=== PATIENT | female | born 1985 | race Caucasian/White ===

== ENCOUNTER → 2021-01-13 09:12 | Outpatient (CLI) | payer OTHER, SELFPAY ==
[2021-01-14 02:02] LABS: SARS-CoV-2 RNA PCR Negative
== END ==
PROVIDERS: Visit Provider Physician Assistant
DX: Z20.822 Contact with and (suspected) exposure to COVID-19 (principal); B34.9 Viral infection, unspecified
CPT/HCPCS: C9803; U0003; U0005

== ENCOUNTER 2021-07-03 14:30 | Emergency (ER) | payer OTHER, SELFPAY ==
[2021-07-03 14:41] VITALS: BP 119/69; PULSE 84; RESP 18; TEMP 37; O2SAT 100
--- NOTE | 2021-07-03 15:13 | ED.FEMALEGU ---
HPI - Female Genitourinary General Chief complaint: Urogenital-Female Stated complaint: Lower back Pain,UTI Time Seen by Provider: 07/03/21 15:15 Source: patient and RN notes reviewed Mode of arrival: ambulatory Limitations: no limitations History of Present Illness HPI Narrative: 35-year-old female presents to the [facility] with lower back pain bilaterally. States that she lost partial control of her urine while standing pain for her groceries this morning. Has had control of her urine since. Related Data Home Medications Medication Instructions Recorded Confirmed aripiprazole mg 07/03/21 sertraline mg 07/03/21 07/03/21 Allergies Allergy/AdvReac Type Severity Reaction Status Date / Time No Known Allergies Allergy Verified 07/03/21 15:05 Review of Systems Review of Systems: All systems reviewed & are unremarkable except as noted in HPI and below Constitutional: Constitutional: Reports no additional constitutional complaints, Denies chills and Denies fatigue Eyes: Eyes: Reports no additional eye complaints ENT: Reports system reviewed and no additional complaints, except as documented Cardiovascular: Cardiovascular: Reports no additional cardiovascular complaints Respiratory: Respiratory: Reports no additional respiratory complaints Gastrointestinal: Gastrointestinal: Reports no additional gastrointestinal complaints, Denies abdominal pain, Denies nausea and Denies vomiting Genitourinary: Genitourinary: Reports as per HPI and Reports nocturia Musculoskeletal: Musculoskeletal: Reports as per HPI and Reports back pain (lower) Integumentary/Breasts: Skin/Breast: Reports system reviewed and no additional complaints, except as docu Neurologic: Reports system reviewed and no additional complaints, except as documented Psychiatric: Psychiatric: Reports no additional psychiatric complaints Allergic/Immunologic: Allergic/Immunologic: Reports no additional allergic/immunologic complaints [facility] Past Medical History Medical History (Updated 07/05/21 @ 10:41 by Bev No) Depression with anxiety Surgical History Surgical History (Updated 07/05/21 @ 10:37 by Bev No) No significant past surgical history Social History Social History (Updated 07/05/21 @ 10:38 by Bev No) Living arrangements: with family Gender identity (if verbalized by the patient): Female Comments At the time of my signature, I reviewed and agree with the nursing past medical, surgical, social, and family history. There is no relevant family history pertinent to the patient complaint. Exam Const: General: no acute distress and alert Nutritional Appearance: well nourished Orientation/consciousness: patient oriented x3 Limitations: no limitations HENMT: Head: normal to inspection Ears: external ears normal Eyes: Pupils: Equal, round and reactive pupils present Neck: Neck: normal visual inspection, no lymphadenopathy and no meningeal signs Chest: Chest palpation & inspection: normal inspection of the chest Resp: Effort & Inspection: normal respiratory effort and no use of accessory muscles Auscultation: clear to auscultation bilaterally, no crackles, no rales, no rhonchi and no wheezes Cardio: Rate: regular rate Rhythm: regular rhythm GI: GI Palp: Yes Soft to palpation, No Tenderness to palpation present (GI), No Guarding due to palpation present (GI) and No Rebound tenderness present Auscultation: normal bowel sounds : General: Yes no CVA tenderness Back/Spine/Pelvis: Back: no CVA tenderness Cervical Spine: normal cervical lordosis, cervical ROM normal and No cervical muscular tenderness Pelvis: no pain with anterior-posterior compression and no pain with lateral compression Sacrum: no ecchymosis Coccyx: no swelling and no tenderness Back/spine/pelvis image: 1. Reports pain to the lower lumbar area. No midline tenderness. No loss of bowel. Patient states that she had a small loss of
== END 2021-07-03 15:40 | disposition home or self-care (01) ==
PROVIDERS: Emergency Provider Nurse Practitioner; PCP Family Medicine
DX: M54.5 Low back pain (principal); F41.9 Anxiety disorder, unspecified; F32.9 Major depressive disorder, single episode, unspecified
CPT/HCPCS: 81003; 87086; 99213; G0463

== ENCOUNTER 2024-06-05 08:25 | Day surgery (SDC) | payer OTHER, SELFPAY ==
[2024-05-28 10:34] VITALS: BMI 32.2
--- NOTE | ~2024-06-05 | XR_ITS ---
EXAMINATION: XR fluoroscopy no charge DATE: 06/05/2024 10:35 CDT INDICATION: PRISCILLA L4-5,L5-S1 TRANSFORAMINAL INJ . TECHNIQUE: 7 fluoroscopic images and multiple cine clips of the lumbar spine were obtained during priscilla ateral L4-5 and L5-S1 transforaminal injection, performed by Vincent Barragan MD. I was not present d uring the procedure. Fluoroscopy exposure time was 24.7 seconds. Air Kerma 13.49 mGy. COMPARISON: None FINDINGS/IMPRESSION: Fluoroscopic documentation of bilateral L4-5 and L5-S1 transforaminal injection. Please refer to the operative note for complete procedural details . Reviewed, dictated and finalized at location K.
--- NOTE | 2024-06-05 05:41 | WPDHPUPDATE1 ---
History and Physical Update Update Date/Time: 06/05/24 05:41 History and Physical has been reviewed, including an updated exam of the patient. There are NO changes in the patient's condition. Risks, benefits, and alternatives have been discussed and questions answered. Patient agrees to proceed with procedure.
--- NOTE | 2024-06-05 05:43 | W.PM.PROC2 ---
Procedure Note - Detailed Date of Procedure 06/05/24 Pre-op Diagnosis Lumbar Radiculopathy Post-op Diagnosis Same Procedure Performed bilateral Lumbar Transforaminal Epidural Steroid Injection under Fluoroscopic Guidance and with Contrast Control at L4-5, L5-S1. Surgeon Vincent Barragan MD Anesthesia Local Description of Procedure INFORMED CONSENT: Risks, benefits and alternatives to the procedure were discussed in detail with the patient who expressed explicit understanding and consent to proceed. Patient was informed verbally and in written form regarding the risks associated with the procedure including the low risk of serious infection, bleeding/bruising, allergic reaction, nerve or organ injury, paralysis, procedural site pain or discomfort, worsening pain and/or mobility, failure to treat and/or disfigurement. The patient expressed explicit understanding and consent to proceed. All materials required for the procedure were available prior to procedure start. Site and side was marked prior to procedure and confirmed in the presence of the patient. PROCEDURE IN DETAIL: The patient was brought to the procedural suite and placed in the prone position. Patient was made comfortable with use of pillows under the head/chest, hips and ankles. Skin overlying the injection site was prepared broadly with ChloraPrep applicator and draped in a sterile manner. Aseptic technique was employed throughout. The endplates of the vertebral body at the site of interest were aligned in the AP view. Ipsilateral oblique angulation was utilized to better visualize the neuroforamen of interest. Local anesthesia was established by infiltration with approximately 5 mL of 2% lidocaine via a 1-1/2 inch 27-gauge needle. A 22-gauge 5.0 inch Danny (pencil point) spinal needle was advanced until the needle approached the 6 o'clock position on the pedicle just superior to the exiting nerve root. on the right at L4-5. Lateral view was utilized to confirm appropriate position of the needle tip within the superior and posterior portion of the respective foramen. In an AP view, 1 mL of Omnipaque 300 contrast medium was injected after negative aspiration for CSF, blood or other bodily fluid, showing appropriate neurogram without evidence of intravascular or intrathecal spread of contrast. Digital subtraction imaging was used with an additional 1ml of the same contrast medium to confirm absence of intravascular contrast spread. A 1mL solution containing 3 mg of betamethasone was injected after negative repeat aspiration. Appropriate spread of the injectate was confirmed with washout of previously injected contrast. No parasthesias were elicited. Needle was removed completely intact without difficulty. [The same exact procedure was repeated for all remaining levels on the ipsilateral side, right L5-S1 neuroforamen, modified as necessary to accommodate for the new target location with identical findings and results and no evidence of complication.] the same exact procedure was then repeated for all remaining levels on the contralateral side, left L4-5, L5-S1 neural foramen, modified as necessary to accommodate for the new contralateral target location with identical findings and results and no evidence of complication. Images were saved and documented in the patient chart. Patient's skin was cleaned and sterile bandage applied. The patient tolerated the procedure well. The patient was transported to the recovery area in stable condition where they were observed for an appropriate amount of time prior to discharge, without evidence of complication. The patient was instructed to avoid excessive activity for the next 48 hours, including climbing and frequent use of stairs. Showers only for 48 hours. They were instructed not to drive or operate heavy machinery for 24 hours. They are to monitor for severe headaches, fevers, chills, night sweats, erythema/swelling at the site or any other signs of infe
[2024-06-05 09:33] VITALS: BMI 31.8
[2024-06-05 09:36] VITALS: BP 141/83; PULSE 90; RESP 18; TEMP 36.9; O2SAT 100
[2024-06-05 10:41] VITALS: BP 145/78; PULSE 108; RESP 24; O2SAT 100
[2024-06-05 10:51] VITALS: BP 148/71; PULSE 101; RESP 24; O2SAT 99
[2024-06-05] MEDS: LIDOCAINE HCL 2% PF INJ 5 ML VIAL 2 ML INFILTRATE (10:53)
[2024-06-05] MEDS: BETAMETHASONE SODIUM PHOSPHATE PF INJ 6 MG/ML VIAL 12 MG INFILTRATE (10:53)
[2024-06-05] MEDS: LIDOCAINE HCL 1% PF INJ 5 ML VIAL 2 ML INFILTRATE (10:53)
[2024-06-05 10:59] VITALS: BP 130/82; PULSE 83; RESP 18; O2SAT 100
== END 2024-06-05 11:19 | disposition home or self-care (01) ==
PROVIDERS: Visit Provider Anesthesiology Pain Medicine
PROC: (CPT 64483; principal; 2024-06-05 10:15)
DX: M54.16 Radiculopathy, lumbar region (principal)
CPT/HCPCS: 64483 ×2; 64484 ×2; 99199